=== PATIENT | female | born 1995 | race Caucasian/White ===

== ENCOUNTER 2021-05-09 11:02 | Emergency (ER) | payer OTHER ==
[~2021-05-09] VITALS: Ht 167.6 cm; Wt 61.2 kg
== END 2021-05-09 13:36 | disposition home or self-care (01) ==
LOC: ER 11:02
DX: U07.1 COVID-19 (principal); R19.7 Diarrhea, unspecified; R11.0 Nausea; R53.81 Other malaise; E86.0 Dehydration; Z03.818 Encounter for observation for suspected exposure to other biological agents ruled out